=== PATIENT | male | born 1960 | race Caucasian/White ===

== ENCOUNTER 2018-08-15 19:29 | Emergency (ER) | payer MEDICARE ==
--- NOTE | 2018-08-15 21:13 | EDM.PDOC ---
ED HPI GENERAL MEDICAL PROBLEM - General Chief Complaint: General Stated Complaint: FELL HURT TAILBONE Time Seen by Provider: 08/15/18 21:00 Source of Information: Reports: Patient, Family History Limitations: Reports: Language Barrier - History of Present Illness INITIAL COMMENTS - FREE TEXT/NARRATIVE: Yandel is a 58 year old male, deaf, father here interpreting with sign language. Patient reports left sided buttock pain that radiates down left thigh about detention for the last 2 days. Patient reports that back in May he slipped on the ice and fell, landing on tailbone area. He resting, took Ibuprofen and pain improved. He was never seen for this. Patient then 2 days ago helped a friend put a dock in the water, was pushing and pulling and pain returned, however now pain is left sided. Patient denies any weakness, loss of bowel or bladder. Patient has been taking Ibuprofen for pain with good relief. Patient arrives her quite hypertensive. He does not have a primary care provider. He denies any chest pain, sob, or headache currently. Onset: Gradual tailbone Pain Score (Numeric/FACES): 4 - Related Data Allergies Allergy/AdvReac Type Severity Reaction Status Date / Time No Known Allergies Allergy Verified 08/15/18 20:49 Home Meds: Home Meds NK [No Known Home Meds] 08/15/18 [History] Past Medical History HEENT History: Reports: Hard of Hearing, Otitis Media, Other (See Below) Other HEENT History: pt is deaf Musculoskeletal History: Reports: Fracture Dermatologic History: Reports: Other (See Below) Other Dermatologic History: "dry skin" on ankle/feet Social & Family History - Tobacco Use Smoking Status *Q: Never Smoker - Caffeine Use Caffeine Use: Reports: None - Recreational Drug Use Recreational Drug Use: No ED ROS GENERAL - Review of Systems Review Of Systems: ROS reveals no pertinent complaints other than HPI. ED EXAM, GENERAL - Physical Exam Exam: See Below Exam Limited By: No Limitations General Appearance: Alert, WD/WN, No Apparent Distress Respiratory/Chest: No Respiratory Distress, Lungs Clear Cardiovascular: Regular Rate, Rhythm Extremities: Normal Inspection, Normal Range of Motion, Other (Tenderness noted to left medial buttock left hip and left lateral mid thigh) Neurological: Alert, Oriented, CN II-XII Intact Psychiatric: Normal Affect Skin Exam: Warm, Dry, Intact, No Rash Lymphatic: No Adenopathy Course - Vital Signs Last Recorded V/S: Last Vital Signs Temp 36.6 C 08/15/18 20:57 Pulse 75 08/15/18 20:57 Resp 15 08/15/18 20:57 BP 194/100 H 08/15/18 20:57 Pulse Ox 95 08/15/18 20:57 Yandel is a 58 year old male, presents here today with his dad who is signing for patient with c/o left buttock pain radiating to left mid thigh. Please refer to HPI and focused exam. Patient's exam is consistent with an acute sciatica. No spinous process tenderness, no neuro/focal deficits or signs concerning for cauda equina. X-ray done of left hip and pelvis which is negative for acute fracture. Recommend scheduled ibuprofen as well as Robaxin for a muscle relaxer, patient instructed not to drive until he knows how he does on the Robaxin. Patient quite hypertensive here, denies any associated symptoms, he lacks a primary care provider. Patient strongly encouraged to establish primary care and follow up with regard to his untreated hypertension. Patient would very much benefit from weight loss and dietary changes. Reasons to return to the ED discussed with patient and his dad, they are agreeable to plan of care and patient was discharged in stable condition. - Orders/Labs/Meds Orders: Active Orders 24 hr Category Date Time Status Hip Min 2V or 3V w Pelvis Lt [CR] Stat Exams 08/15/18 21:09 Taken Departure - Departure Time of Disposition: 22:30 Disposition: Home, Self-Care 01 Condition: Good Clinical Impression: Acute sciatica - Discharge Information Instructions: Sciatica Referrals: PCP,None [Primary Care Provider] - Forms: ED Department Discharge Additional Instructions: Your Xray looks okay, there is nothing broken. I think your symptoms are most consistent with an acute sciatica. You can take Ibuprofen 600 mg every 6 hours for pain. I have also prescribed Robaxin which is a muscle relaxer, it may make you sleepy so be careful when you take this. With regard to your blood pressure, it is too high. You need to establish a primary care provider and start medication for this, you are at a very increased risk for stroke and heart attack if you do not get this treated. Avoid any heavy lifting, pulling or pushing until your pain is resolved. - My Orders Last 24 Hours: My Active Orders 08/15/18 21:09 Hip Min 2V or 3V w Pelvis Lt [CR] Stat - Assessment/Plan Last 24 Hours: My Active Orders 08/15/18 21:09 Hip Min 2V or 3V w Pelvis Lt [CR] Stat
--- NOTE | 2018-08-15 22:26 | CRLCR ---
Indication: Fall, pain Technique: Frontal view pelvis, two view left hip Comparison: None Findings: Bones: Alignment is normal. No fractures or bone lesions. Joint spaces: Mild degenerative changes in the left hip joint. Soft tissues: Unremarkable. Impression: No acute fracture or subluxation. Mild degenerative changes in the left hip joint. Dictated by Zoie Willett MD @ Aug 15 2018 10:21PM Signed by Dr. Zoie Willett @ Aug 15 2018 10:23PM
== END 2018-08-15 22:51 | disposition home or self-care (01) ==
LOC: JP.ED 19:29
DX: M54.32 Sciatica, left side (principal)
CPT/HCPCS: 73502-LT; 99283; 99283-25